=== PATIENT | male | born 1985 | race Caucasian/White ===

== ENCOUNTER 2021-04-19 01:38 | Emergency (ER) | payer SELFPAY ==
[2021-04-19] MEDS ORDERED: Aspirin 81 MG Tab.Chew PO ONE (02:39)
[2021-04-19] MEDS ORDERED: LORazepam 0.5 MG Tab PO ONE (02:43)
[2021-04-19 03:36] LABS: BLOOD UREA NITROGEN,BUN 9 mg/dL (7.0-18.0); CARBON DIOXIDE,CO2 26.9 mmol/L (21.0-32.0); CHLORIDE,CL 102 mmol/L (98-107); GLUCOSE RANDOM 99 mg/dL (74-106); POTASSIUM,K 3.4 mmol/L (3.5-5.1); SODIUM,NA 139 mmol/L (136-148)
[2021-04-19] MEDS ORDERED: Potassium Chloride 10% 20 MEQ/15 ML Soln 30 ML UD Cup PO ONE (03:45)
[2021-04-19] MEDS ORDERED: Ketorolac 30 MG/ML SDV IVPUSH ONE (03:59)
[2021-04-19] MEDS ORDERED: Ketorolac 30 MG/ML SDV IM ONE (04:18)
== END 2021-04-19 06:30 | disposition home or self-care (01) ==
LOC: MW.ED 01:38
DX: R07.9 Chest pain, unspecified (principal); Z88.0 Allergy status to penicillin; Z87.891 Personal history of nicotine dependence; Z20.822 Contact with and (suspected) exposure to COVID-19
CPT/HCPCS: 36415; 71045; 80053; 83735; 84484; 85025; 87635; 93005; 96372; 99285; A9270; J1885; U0002